=== PATIENT | female | born 1985 | race Two or more races ===

== ENCOUNTER 2022-04-02 22:28 | Emergency (ER) | payer OTHER ==
[2022-04-02 22:38] VITALS: BP 151/89
--- NOTE | 2022-04-02 23:00 | ED Physician Documentation ---
PD HPI SKIN - Stated complaint Stated Complaint: RED RASH ON LT ARM - Chief complaint Chief Complaint: Ext Problem - History obtained from History obtained from: Patient - Additional information Additional information: Patient is a 36-year-old female with no significant past medical history presenting for evaluation of a rash to the back of her left upper arm that she noticed this evening.Patient reports she was getting ready for bed when she noticed the rash. She denies itching. She is unsure of any known exposures. She had her daughter outline the rash with a marker. She denies fever. She is not diabetic.She denies any known injury.She reports the area feels tight with movements but otherwise she denies other symptoms. She has not taken anything for it.On further exam, I noted areas of erythema elsewhere. Patient does report sitting outside today on outdoor furniture which they had not cleaned for the season and she does have a history of seasonal allergies.She denies any chest pain or trouble breathing. Review of Systems Constitutional: denies: Fever Nose: denies: Congestion Cardiac: denies: Chest pain / pressure Respiratory: denies: Dyspnea, Cough GI: denies: Abdominal Pain, Vomiting : denies: Dysuria Skin: reports: Rash Musculoskeletal: denies: Neck pain Neurologic: denies: Headache PD PAST MEDICAL HISTORY - Present Medications Home Medications: Ambulatory Orders Medication Instructions Recorded Confirmed No Known Home Medications 04/02/22 04/02/22 - Allergies Allergies/Adverse Reactions: Allergies Allergy/AdvReac Type Severity Reaction Status Date / Time No Known Drug Allergies Allergy Verified 04/02/22 22:36 PD ED PE NORMAL - General General: Alert and oriented X 3, No acute distress, Well developed/nourished - HEENT HEENT: Atraumatic, Moist mucous membranes, Pharynx benign (No oral lesions) - Neck Neck: Supple, no meningeal sign - Cardiac Cardiac: RRR (Improved from triage on my exam), No murmur, Strong equal pulses - Respiratory Respiratory: No respiratory distress, Clear bilaterally - Derm Derm: Other (Blanching erythema to bilateral upper arms Neck and back, No hives, No peeling, No central clearing, Mild swelling noted to erythema of left upper arm - No fluctuance, erythema is not extending past the marker line previously drawn). No: No rash - Extremities Extremities: Normal ROM s pain, Other (Distal pulses intact) PD ED PE EXPANDED - Derm SKin visual: 1 - rash 2 - rash 3 - rash 4 - rash - Extremities Extremities: Motor intact, Vascular intact. No: Red warm joint Results - Vitals Vitals: Vital Signs - 24 hr 04/02/22 22:32 Temperature 36.8 C Heart Rate 110 H Respiratory 18 Rate Blood Pressure 151/89 H O2 Saturation 99 Oxygen O2 Source Room air PD MEDICAL DECISION MAKING - ED course Complexity details: d/w patient, d/w family ED course: Patient evaluated for new rash to left arm. On further evaluation however noted that she has similar rash elsewhere on her body. Patient does have a history of seasonal allergies and was outside today sitting on lawn furniture. Patient has no respiratory symptoms. As rash appears to be more than 1 location I suspect an allergic process.No evidence of joint infection. Do not feel rash appear cellulitic at this time. Patient counseled on supportive treatments with antihistamines and topical hydrocortisone. Patient is aware that if her symptoms are not improving then she should be reevaluated.Patient was initially tachycardic at triage but had improved heart rate during my evaluation.She did not appear septic. Departure - Departure Disposition: 01 Home, Self Care Clinical Impression: Dermatitis Condition: Stable Instructions: ED Allergic Reaction General Other Comments: You were evaluated for a rash to your left arm. On further exam however, it appears that you have signs of a rash elsewhere on your body like your upper back and right arm. This may be related to an allergic reaction given that it is on several areas of your body. I would use antihistamine medications like Benadryl and Zyrtec As well as topical hydrocortisone cream 1% That is available [id number]. You can use the hydrocortisone cream twice a day For up to a week. I would expect the rash to appear better by tomorrow. If it anytime it seems that the rash is getting worse or you notice any abnormal drainage then please return to the emergency department for another evaluation. Discharge Date/Time: 04/02/22 23:11
== END 2022-04-02 23:11 | disposition home or self-care (01) ==
LOC: ED 22:28
DX: L30.9 Dermatitis, unspecified (principal)
CPT/HCPCS: 99281; 99282

== ENCOUNTER 2022-06-07 15:02 | Outpatient (CLI) | payer OTHER ==
--- NOTE | 2022-06-07 16:51 | MRI Report ---
PROCEDURE: Knee RT W/O INDICATIONS: KNEE PAIN TECHNIQUE: Noncontrast sagittal PD fast spin echo and T2 fast spin echo with fat saturation, sagittal 3-D gradie nt sequence with fat saturation; coronal T1 spin echo and PD fast spin echo with fat saturation, and axial PD fast spin echo with fat saturation through the knee. COMPARISON: None. FINDINGS: Image quality: Excellent. Menisci: The medial and lateral menisci demonstrate normal morphology and internal signal. The meni scal root ligaments appear intact. Cruciate ligaments: The anterior and posterior cruciate ligaments appear intact. Medial structures: The medial collateral ligament appears intact. Visualized portions of the pes ans erinus tendons appear normal. No abnormal bursal fluid. Lateral structures: The lateral collateral ligament, long and short heads of the biceps femoris tend on appear intact. The popliteus tendon appears normaly. Iliotibial band appears normal. Anterior structures: The quadriceps and patellar tendons appear intact. Mild lateral patellar sublux ation. Moderate lateral ventral trochlear prominence. Moderate edema within the superolateral aspect of the infrapatellar fat pad. Bones and cartilage: No bone marrow contusions or fractures. Moderate articular cartilage loss overl ies the lateral patellar facet inferiorly. Joint space: There is physiologic knee joint fluid. There is a large, debris-containing Freeman's cyst , measuring roughly 70 mm craniocaudal by 30 mm anteroposterior by 40 mm transverse. Freeman's cyst. N ormal appearing synovial plicae are incidentally noted. IMPRESSION: 1. Large debris-containing Freeman's cyst. 2. Findings consistent with lateral patellofemoral friction syndrome in the appropriate clinical sett ing. Reviewed by: Halina Muir MD on 06/07/2022 4:50 PM PDT Approved by: Halina Muir MD on 06/07/2022 4:50 PM PDT Station ID: [id number]
== END 2022-06-07 15:03 | disposition home or self-care (01) ==
LOC: DI 15:02
PROVIDERS: ATTEND Physician Assistant
DX: M71.21 Synovial cyst of popliteal space [Baker], right knee (principal); R60.0 Localized edema; L90.5 Scar conditions and fibrosis of skin